=== PATIENT | female | born 1950 | race Caucasian/White ===

== ENCOUNTER 2020-04-24 11:32 | Emergency (ER) | payer MEDICARE ==
[~2020-04-24] VITALS: Ht 165.1 cm; Wt 80.0 kg
--- NOTE | 2020-04-24 11:52 | PHYS DOC ---
General Adult EDM: Chief Complaint: BACK PAIN OR INJURY HPI: HPI: The history was obtained from the patient. Patient is a 69-year-old female with PMH notable for chronic back pain with history of stimulator who presents with a chief complaint of back pain. Patient states she has had worsening back pain over the past 2 days. She denies any trauma or injury. Denies any movement that may have worsened her pain acutely. She states she has had this back pain numerous times in the past. States she has been to the emergency department the past for back pain. She states that she tried a muscle relaxant at home with no relief. She states that she did not try any other medication because things such as ibuprofen or Tylenol do not typically help. She notes she had a back stimulator placed approximately 6 years ago. However, she states it has been turned off in the past 4 years because it did not help. States the pain is located in her right lower paraspinal musculature. She states movement makes the pain worse. States nothing seems to help the pain. States is a constant aching pain that occasionally sharp and radiating down her right leg. Denies any fevers. Denies any syncope. Denies any urinary symptoms. Denies any chest pain or shortness of breath. Patient denies any urinary retention, stool incontinence, saddle anesthesia, history of IV drug use, or history of cancer. Review of Systems: Review of Systems: Constitutional: Denies fever or chills Eyes: Denies change in visual acuity HENT: Denies nasal congestion or sore throat Respiratory: Denies cough or shortness of breath Cardiovascular: Denies chest pain or edema GI: Denies abdominal pain, nausea, vomiting, bloody stools or diarrhea : Denies dysuria Musculoskeletal: Positive for back pain Integument: Denies rash Neurologic: Denies headache, focal weakness or sensory changes Endocrine: Denies polyuria or polydipsia Lymphatic: Denies swollen glands Psychiatric: Denies depression or anxiety Heart Score: Risk Factors: Risk Factors: DM, Current or recent (<one month) smoker, HTN, HLP, family history of CAD, obesity. Risk Scores: Score 0 - 3: 2.5% MACE over next 6 weeks - Discharge Home Score 4 - 6: 20.3% MACE over next 6 weeks - Admit for Clinical Observation Score 7 - 10: 72.7% MACE over next 6 weeks - Early Invasive Strategies Physical Exam: PE: Constitutional: Well developed, well nourished, no acute distress, non-toxic appearance. [] HENT: Normocephalic, atraumatic, bilateral external ears normal, oropharynx moist, no oral exudates, nose normal. [] Eyes: PERRLA, EOMI, conjunctiva normal, no discharge. [] Neck: Normal range of motion, no tenderness, supple, no stridor. [] Cardiovascular:Heart rate regular rhythm, no murmur [] Lungs & Thorax: Bilateral breath sounds clear to auscultation [] Abdomen: soft, no tenderness, no masses, no pulsatile masses. [] Skin: Warm, dry, no erythema, no rash. [] Back: + 5/5 motor strength in dorsiflexion and plantarflexion of the great toes bilaterally. Sensation intact between the webbing of the first and second toes bilaterally. Reproducible tenderness over the right lumbar paraspinal musculature. Extremities: No tenderness, no cyanosis, no clubbing, ROM intact, no edema. [] Neurologic: Alert and oriented X 3, normal motor function, normal sensory function, no focal deficits noted. [] Psychologic: Affect normal, judgement normal, mood normal. [] EKG: EKG: [] Radiology/Procedures: Radiology/Procedures: [] Course & Med Decision Making: Course & Med Decision Making Pertinent Labs and Imaging studies reviewed. (See chart for details) Patient is a 69-year-old female who presents with chief complaint of acute on chronic back pain. She denies any red flag signs or symptoms regarding her back pain. She states she has had similar episodes in the past that brought her to the emergency department. Patient's pain was treated symptomatically. On repeat examination she states her symptoms have improved significantly. She was seen ambulating to the bathroom in the emergency department. At this time I do feel it is reasonable to defer advanced imaging. Patient is in agreement with this. Patient will be discharged home with supportive care measures. She was instructed to follow-up with her primary care physician in the next 2 to 3 days. Return precautions discussed and understood. Stable for discharge home. [place] Disclaimer: [place] Disclaimer: This electronic medical record was generated, in whole or in part, using a voice recognition dictation system. Departure Departure: Impression: Primary Impression: Acute exacerbation of chronic low back pain Disposition: HOME/RESIDENCE PRIOR TO ADM Condition: STABLE Referrals: DAYANNA FERMIN MD (PCP) Patient Instructions: Back Pain in Additional Instructions: Please follow-up with your primary care physician in the next 2 to 3 days. Scripts Hydrocodone Bit/Acetaminophen (NORCO 5-325 TABLET) 1 Each Tablet 1 TAB PO TID for pain, #10 TAB Prov: RAMONA RAMON DO 04/24/20 Lidocaine (Lidocaine) 1 Each Adh..patch 1 EACH TP BID for pain, #6 PATCH Prov: RAMONA RAMON DO 04/24/20 Ibuprofen (IBUPROFEN) 200 Mg Tablet 600 MG PO QIDPRN PRN for PAIN, #15 TAB Prov: RAMONA RAMON DO 04/24/20 Justification of Admission: Justification of Admission: Justification of Admission Dx: N/A RAMONA RAMON DO Apr 24, 2020 11:52
[2020-04-24] MEDS ORDERED: HYDROcodone/APAP 10/325 1 TAB TABLET PO ONE (12:00)
[2020-04-24] MEDS ORDERED: LIDOCAINE (700MG/PATCH) PATCH. TD ONE (12:00)
[2020-04-24] MEDS ORDERED: KETOROLAC 30 MG/ML VIAL. IM ONE (12:00)
[2020-04-24] MEDS ORDERED: CYCLOBENZAPRINE 10 MG TABLET. PO ONE (12:00)
[2020-04-24] MEDS ORDERED: HYDR-3165 PO (13:09)
[2020-04-24] MEDS ORDERED: LIDO1ADH63 TP (13:09)
[2020-04-24] MEDS ORDERED: IBUP-1673 PO (13:09)
[2020-04-24 13:14] VITALS: BP 122/54
== END 2020-04-24 13:25 | disposition home or self-care (01) ==
LOC: ER 11:32
DX: G89.29 Other chronic pain (principal); M54.5 Low back pain
CPT/HCPCS: 96372; 99284; J1885

== ENCOUNTER → 2021-02-23 | Outpatient (CLI) | payer MEDICARE ==
[~2021-02-23] MED LIST: HYDR-3165 PO; IBUP-1673 PO; LIDO1ADH63 TP
--- NOTE | 2021-02-23 13:31 | RAD ---
EXAM: Right foot, 3 views. HISTORY: Arthritis. COMPARISON: None. FINDINGS: 2 views of the right foot are obtained. There are postoperative changes within the first me tatarsal with fixation screws due to prior hallux valgus repair. There is no acute fracture, dislocat ion or subluxation. IMPRESSION: 1. No acute osseous finding. 2. Postoperative changes within the first metatarsal. Electronically signed by: Keisha Gimenez MD (02/23/2021 1:28 PM) [id number]
== END ==
LOC: DXRAD 11:52
PROVIDERS: ATTEND Podiatrist Foot & Ankle Surgery
DX: M19.071 Primary osteoarthritis, right ankle and foot (principal)
CPT/HCPCS: 73630